=== PATIENT | male | born 1975 | race Caucasian/White ===

== ENCOUNTER 2018-08-10 07:37 | Inpatient (IN) | payer MEDICARE, OTHER ==
[2018-08-10] MEDS ORDERED: ROCURONIUM BROMIDE 10 MG/ML 5ML VIAL ONE (08:48)
[2018-08-10] MEDS ORDERED: ePHEDrine SULFATE 50 MG/1 ML IVP ONE (08:48)
[2018-08-10] MEDS ORDERED: LIDOCAINE HCL 2% PF 100MG/5ML VIAL IJ ONE (08:48)
[2018-08-10] MEDS ORDERED: ENOXAPARIN SODIUM 40 MG/0.4 ML DISP.SYRIN SQ ONE (08:48)
[2018-08-10] MEDS ORDERED: CLINDAMYCIN PHOSPHATE 900 MG/6 ML VIAL ONE (08:48)
[2018-08-10] MEDS ORDERED: BUPIV. HCL 0.25% (2.5MG/ML)/EPI. (1:200,000) PF 30 ML VIAL IJ ONE (08:48)
[2018-08-10] MEDS ORDERED: LEVALBUTEROL NEB 1.25 MG/3 ML VIAL.NEB NEB ONE (08:48)
[2018-08-10] MEDS ORDERED: LACTATED RINGERS 1,000 ML IV.SOLN IV ONE ×2 (08:48)
[2018-08-10] MEDS ORDERED: MIDAZOLAM HCL 2 MG/2 ML VIAL ONE (08:48)
[2018-08-10] MEDS ORDERED: DEXAMETHASONE SODIUM PHOSPHATE 10 MG/ML VIAL ONE (08:48)
[2018-08-10] MEDS ORDERED: SEVOFLURANE 250 ML LIQUID IH ONE (08:48)
[2018-08-10] MEDS ORDERED: SUGAMMADEX SODIUM 500 MG/5 ML VIAL IV ONE (08:48)
[2018-08-10] MEDS ORDERED: LIDOCAINE HCL 1% PF 300MG/30ML VIAL ONE (08:48)
[2018-08-10] MEDS ORDERED: ONDANSETRON HCL/PF 4 MG/ 2ML VIAL ONE (08:48)
[2018-08-10] MEDS ORDERED: FAMOTIDINE 20 MG/2 ML VIAL IV ONE (08:48)
[2018-08-10] MEDS ORDERED: SODIUM CHLORIDE IRRIG SOLUTION 3,000 ML IRRIG.SOLN IR ONE (08:48)
[2018-08-10] MEDS ORDERED: fentaNYL CITRATE/PF 100 MCG/2 ML INJ. ONE ×2 (08:48→12:31)
[2018-08-10] MEDS ORDERED: PROPOFOL 200 MG/20 ML VIAL IV ONE (08:48)
[2018-08-10 13:07] VITALS: BMI 59.3
[2018-08-10] MEDS ORDERED: KETOROLAC TROMETHAMINE 30 MG/1ML VIAL IV PRN (13:08)
--- NOTE | 2018-08-10 13:15 | History and Physical Report ---
History of Present Illnes - History of Present Illness Reason for Visit: S/P LSG History of Present Illness: Patient is a 43-year-old male who has tried multiple diets and exercise programs with no success. He has always struggled with his weight. He has tried many diet plans, diet pills, and walking and has not been able to keep it off. Patient and surgeon decided to proceed with gastric sleeve procedure. Procedure went well- He will be admitted and monitored s/p surgical intervention. Patient has been on a liquid diet prior to surgery so he is a risk of dehydration s/p surgery. He will be admitted for IV hydration to help hydrate patient until he is able to tolerate a sufficient oral intake, will treat pain with IV medication until patient is able to tolerate oral meds, IV antiemetics to help reduce episodes of nausea and/or vomiting. Patient will be monitored closely using telemetry due to cardiac history of HTN and sleep apnea. - Past Medical History Cardiac: HTN, Hyperlipidemia Pulmonary: Sleep Apnea (SETTING 16-20), Other (SOB WITH EXERTION) REVIEW CONSULTANT: Migraine Gastrointestinal: Irritable bowel disease Psych: Depression Musculoskeletal: Chronic low back pain, Osteoarthritis Renal/: Other (HYPOGONADISM) - Past Surgical History Past Surgical History: Other (RT ULNAR NERVE DECOMPRESSION) - Past Family History Mother Family History: CAD, CVA, DM, Hypertension, Other (OBESITY) - Past Social History Smoke: <1 pack per day Occupation: DISABLED Alcohol: Rare Drugs: None Lives: With Family - Health Maintenance Health Maintenance: Cholesterol Influenza Vaccine: No Pneumonia Vaccine: No Resuscitation Status: Resusciation Status Resuscitation Status Full Code - Unable to Obtain History Unable to Obtain: No Review of Systems - Review of Systems Constitutional: negative: Fever, Chills Eyes: negative: conjunctivae inflammation, eyelid inflammation ENT: negative: Ear Pain, Nose Discharge, Throat Pain Respiratory: SOB with Excertion. negative: Cough, Shortness of Breath Cardiovascular: negative: Chest Pain, Light Headedness Gastrointestinal: Nausea, Abdominal Pain. negative: Vomiting Genitourinary: negative: Dysuria Musculoskeletal: Back Pain Skin: negative: Rash, Other (incisions x 5) Neurological: negative: Weakness, Confusion - Medications/Allergies Allergies/Adverse Reactions: Allergies Allergy/AdvReac Type Severity Reaction Status Date / Time Penicillins Allergy Verified 08/10/18 12:59 Home Medications: Home Medications Acetaminophen with Codeine [Tylenol with Codeine #3 Tablet] 1 tab PO Q8 PRN 08/10/18 Baclofen 10 mg PO BID 08/10/18 Buprenorphine [Butrans] 1 each TD WEEK 08/10/18 Duloxetine HCl 60 mg PO DAILY 08/10/18 Garlic 1 tab PO DAILY 08/10/18 Ketoconazole 1 appl 08/10/18 Levocetirizine Dihydrochloride [24Hr Allergy Relief] 5 mg PO DAILY 08/10/18 Linaclotide [Linzess] 145 mcg PO [id number] 08/10/18 Magnesium Oxide [Magnesium] 250 mg PO DAILY 08/10/18 Meloxicam 15 mg PO DAILY 08/10/18 Mometasone Furoate [Nasonex] 17 gm NS BID 08/10/18 Multivitamin [Multiple Vitamins] 1 tab PO DAILY 08/10/18 Omeprazole 40 mg PO DAILY 08/10/18 Potassium Chloride 20 meq PO DAILY 08/10/18 Ranitidine HCl 300 mg PO DAILY 08/10/18 Topiramate 50 mg PO DAILY 08/10/18 Exam - Exam Vital Signs: Vital Signs (72 hours) 08/10/18 08/10/18 12:57 13:02 Temperature 98.4 F 98.4 F Pulse Rate [ 64 64 Right] Respiratory 20 20 Rate Blood Pressure 154/93 154/93 [Right Arm] O2 Sat by Pulse 92 92 Oximetry General: Alert, Oriented to Person, Oriented to Place, Oriented to Time, [place] rative, Moderate distress (due to nausea and discomfort), Morbidly Obese HEENT: PERRLA, Nose Mucous membr. moist/[place] Neck: Normal Range of Motion Carotids: no bruit Lungs: Clear to auscultation, Normal air movement Cardiovascular: Regular rate, Normal S1, Normal S2 Peripheral Edema: none Peripheral Pulses: 2+ Abdomen: Soft, Decreased Bowel Sounds Integumentary: Warm, Dry, Pale, Other (incision dressings x 5 dry and intact) Extremities: No edema, Normal pulses, No tenderness/swelling Neurological: Normal speech, Strength Equal Bilat, Sensation intact. No: Normal gait (usea a cane) Psych/Mental Status: Mental status NL, Intact Judgment Assessment/Plan - Assessment/Plan (1) S/P gastric surgery Status: Acute Plan: Plan to admit for IV hydration, IV pain meds, and IV antiemetics. Lovenox and SCDs to help prevent DVTs, IS and frequent ambulation will be implemented. Start ice chips and advance diet as tolerated. Will check blood sugars frequently and monitor BP (2) Morbid obesity due to excess calories Status: Acute Plan: Patient is s/p gastric sleeve. We will assist patient with implementing gastric sleeve diet protocol starting with ice chips and clear liquids and advancing as tolerated. (3) Hypertension Status: Acute Qualifiers: Hypertension type: essential hypertension Qualified Code(s): I10 - Essential (primary) hypertension Plan: Will monitor blood pressures closely and implement medication as needed (4) Obstructive sleep apnea (adult) (pediatric) Status: Acute Plan: Patient will wear CPAP brought in from home (5) Chronic back pain Status: Acute Plan: Will monitor closely; will have patient ambulating; may use K-pad as needed (6) Depression Status: Acute Plan: Will hold medication until patient is able to tolerate PO VTE Assessment - RISK FACTOR SCORE VTE RISK FACTOR SCORES: AGE 40-60 YEARS, OBESITY, SMOKER, MAJOR SURGERY/ANESTHESIA TIME > 1 HOUR (LOVENOX DAILY, IS, FREQUENT AMBULATION, SCDs while in bed) - RISK VTE HIGH RISK: SCORE OF 3-4 (RISK PROXIMAL DVT 4-8%) PROPHYLAXIS NEEDED (Lovenox daily, SCDs while in bed, IS, frequent ambulation)
[2018-08-10] MEDS ORDERED: 0.9 % SODIUM CHLORIDE 1,000 ML IV ONE (13:21)
[2018-08-10] MEDS: 0.9 % SODIUM CHLORIDE 1,000 ML IV SCH ×2 (13:23→22:26)
[2018-08-10] MEDS ORDERED: NICOTINE 14mg PATCH.TD24 TD PRN (13:28)
[2018-08-10] MEDS: ONDANSETRON HCL/PF 4 MG/ 2ML VIAL IVP PRN ×2 (16:43→22:28)
[2018-08-10] MEDS ORDERED: CLINDAMYCIN HCL 600 MG/50 ML PIGGYBACK IV ONE (17:01)
[2018-08-10] MEDS: CLINDAMYCIN HCL IV SCH (17:19)
[2018-08-10] MEDS: FAMOTIDINE 20 MG/2 ML VIAL IVP SCH (22:27)
[2018-08-10] MEDS: MORPHINE SULFATE 4 MG/ML VIAL IVP PRN (22:28)
[2018-08-11] MEDS ORDERED: CLINDAMYCIN HCL 600 MG/50 ML PIGGYBACK IV ONE (01:37)
[2018-08-11] MEDS: PROMETHAZINE HCL 25 MG in 0.9 % SODIUM CHLORIDE 50 ML IV PRN ×2 (02:08→21:33)
[2018-08-11] MEDS: MORPHINE SULFATE 4 MG/ML VIAL IVP PRN ×2 (02:32→08:44)
[2018-08-11] MEDS: CLINDAMYCIN HCL IV SCH (02:33)
[2018-08-11] MEDS: 0.9 % SODIUM CHLORIDE 1,000 ML IV SCH ×2 (02:35→05:13)
[2018-08-11 06:50] LABS: BASOPHILS % 0.5 % (0.0-1.5); MEAN CORPUSCULAR HEMOGLOBIN 28.3 pg (28.0-34.0); MONOCYTES % 6.7 % (0.0-11.0); NEUTROPHILS # 14.6 # k/uL (1.4-7.7)
--- NOTE | 2018-08-11 06:54 | Inpatient Progress Note ---
Subjective - Required Recertification Statement I anticipate X number of days because-include discharge plan: 1 - Review of Systems Events since last encounter: Patient states that he had a decent night. He had some nausea- minimal vomiting- he was encouraged to sip her drinks and wait in between drinks- he states that his pain is tolerable and pain medications are working. He has been up walking in the [place], wearing SCDs while in bed, and using Incentive Spirometry- incision sites are dry and intact. Patient states that Zofran helps his nausea and pain is running around a 4/10. General: Denies: Chills HEENT: Denies: Dysphasia Pulmonary: Denies: Dyspnea, Cough Cardiovascular: Denies: Chest Pain, Edema Gastrointestinal: Nausea, Vomiting, Abdominal Pain Genitourinary: Denies: Dysuria Musculoskeletal: Back Pain ("from laying in bed") Neurological: Denies: Weakness Objective - Exam Vitals and I&O: Vital Signs Temp 97.8 F 08/11/18 05:37 Pulse 46 L 08/11/18 05:37 Resp 18 08/11/18 05:37 BP 157/64 08/11/18 05:37 Pulse Ox 97 08/11/18 05:37 Intake & Output 08/10/18 08/10/18 08/11/18 11:59 23:59 11:59 Intake Total 450 1080 Output Total 600 0 Balance -150 1080 Weight 209.56 kg Intake: IV 450 900 Left Hand 450 900 Oral 0 180 Output: Urine 600 Stool 0 0 Other: Voiding Method Toilet Toilet # Voids 0 3 # Bowel Movements 0 General: Alert, Oriented to Person, Oriented to Place, Oriented to Time, Cooperative, Mild distress, Morbidly Obese HEENT: PERRLA, Mouth Mucous membr. moist/[place], Nose Mucous membr. moist/[place] Neck: Supple, +2 carotid pulse wo bruit Lungs: Clear to auscultation, Normal air movement Cardiovascular: Regular rate, Normal S1, Normal S2 Abdomen: Normal bowel sounds, Soft Extremities: No edema, Normal pulses, No tenderness/swelling Skin: Normal, [place], Warm, Dry, Other (incisions are dry/intact) Neurological: Normal gait, Normal speech, Strength Equal Bilat, Sensation intact Psych/Mental Status: Mental status NL, Mood NL, Appropriate Affect, Intact Judgment - Results Results: Laboratory Results WBC 18.40 K/ul (4.00-12.00) H 08/11/18 06:10 RBC 4.80 M/ul (3.90-5.20) 08/11/18 06:10 Hgb 13.6 g/dL (12.0-18.0) 08/11/18 06:10 Hct 40.8 % (37.0-53.0) 08/11/18 06:10 MCV 85.0 fl (80.0-100.0) 08/11/18 06:10 MCH 28.3 pg (28.0-34.0) 08/11/18 06:10 MCHC 33.3 g/dL (30.0-36.0) 08/11/18 06:10 RDW 14.1 % (11.3-14.3) 08/11/18 06:10 Plt Count 165 K/mm3 (130-400) 08/11/18 06:10 Neut % (Auto) 79.5 % (39.0-79.0) H 08/11/18 06:10 Lymph % (Auto) 12.3 % (16.0-50.0) L 08/11/18 06:10 [place] % (Auto) 6.7 % (0.0-11.0) 08/11/18 06:10 Eos % (Auto) 1.0 % (0.0-6.8) 08/11/18 06:10 Baso % (Auto) 0.5 % (0.0-1.5) 08/11/18 06:10 Neut # (Auto) 14.6 # k/uL (1.4-7.7) H 08/11/18 06:10 Lymph # (Auto) 2.3 # k/uL (0.6-4.0) 08/11/18 06:10 [place] # (Auto) 1.2 # k/uL (0.0-0.9) H 08/11/18 06:10 Eos # (Auto) 0.2 # k/uL (0.0-0.6) 08/11/18 06:10 Baso # (Auto) 0.1 # k/uL (0.0-0.5) 08/11/18 06:10 Assessment/Plan - Assessment/Plan (1) S/P gastric surgery Status: Acute Assessment: Incision without redness or drainage, positive bowel sounds, minimal discomfort, belching and flatus, no extremity pain or edema, had some nausea with dry heaves Plan: Will continue to have patient ambulate frequently in the [place], wear SCDs while in bed, frequent use of incentive spirometer, continue IVF until patient can take in sufficient oral intake- pt is tolerating po meds (2) Morbid obesity due to excess calories Status: Acute Assessment: Continuing with bariatric diet- patient had some nausea and dry heaves Plan: Will continue with clear liquid diet (3) Hypertension Status: Acute Qualifiers: Hypertension type: essential hypertension Qualified Code(s): I10 - Essential (primary) hypertension Assessment: Blood pressures are stable Plan: Will monitor blood pressures closely-and implement medications as needed (4) Obstructive sleep apnea (adult) (pediatric) Status: Acute Assessment: Stable with CPAP Plan: Continue to use CPAP (5) Chronic back pain Status: Acute Qualifiers: Back pain location: low back pain Assessment: c/o low back pain only because of bed- improves when up and moving Plan: May offer K-pad, frequent ambulation (6) Depression Status: Acute Assessment: sTable Plan: May implement medication once able to tolerate PO
[2018-08-11] MEDS: ONDANSETRON HCL/PF 4 MG/ 2ML VIAL IVP PRN ×2 (06:58→14:03)
[2018-08-11 07:20] LABS: eGFR (Non-African) > 60
[2018-08-11] MEDS ORDERED: SODIUM CHLORIDE IV ONE (08:43)
[2018-08-11] MEDS: TOPIRAMATE 50 MG TABLET PO SCH (08:47)
[2018-08-11] MEDS: ENOXAPARIN SODIUM 40 MG/0.4 ML DISP.SYRIN SQ SCH (08:48)
[2018-08-11] MEDS: FAMOTIDINE 20 MG/2 ML VIAL IVP SCH ×2 (08:49→21:32)
[2018-08-11] MEDS: HYDROcodone-ACETAMIN 7.5-325/15ML SOLN UD CUP PO PRN (14:07)
--- NOTE | 2018-08-12 06:32 | Discharge Summary ---
Discharge Summary - Discharge [facility] Admission Date: 08/10/18 Discharge Date: 08/12/18 History of Present Illness: Patient is a 43-year-old male who has tried multiple diets and exercise programs with no success. He has always struggled with his weight. He has tried many diet plans, diet pills, and walking and has not been able to keep it off. Patient and surgeon decided to proceed with gastric sleeve procedure. Procedure went well- He will be admitted and monitored s/p surgical intervention. Patient has been on a liquid diet prior to surgery so he is a risk of dehydration s/p surgery. He will be admitted for IV hydration to help hydrate patient until he is able to tolerate a sufficient oral intake, will treat pain with IV medication until patient is able to tolerate oral meds, IV antiemetics to help reduce episodes of nausea and/or vomiting. Patient will be monitored closely using telemetry due to cardiac history of HTN and sleep apnea. Condition at Discharge: Stable Home Medications: Ambulatory Orders Medication Instructions Recorded Acetaminophen with Codeine 1 tab PO Q8 PRN 08/10/18 [Tylenol with Codeine #3 Tablet] Baclofen 10 mg PO BID 08/10/18 Buprenorphine [Butrans] 1 each TD WEEK 08/10/18 Duloxetine HCl 60 mg PO DAILY 08/10/18 Garlic 1 tab PO DAILY 08/10/18 Ketoconazole 1 appl 08/10/18 Levocetirizine Dihydrochloride 5 mg PO DAILY 08/10/18 [24Hr Allergy Relief] Linaclotide [Linzess] 145 mcg PO [id number] 08/10/18 Magnesium Oxide [Magnesium] 250 mg PO DAILY 08/10/18 Meloxicam 15 mg PO DAILY 08/10/18 Mometasone Furoate [Nasonex] 17 gm NS BID 08/10/18 Multivitamin [Multiple Vitamins] 1 tab PO DAILY 08/10/18 Omeprazole 40 mg PO DAILY 08/10/18 Potassium Chloride 20 meq PO DAILY 08/10/18 Ranitidine HCl 300 mg PO DAILY 08/10/18 Topiramate 50 mg PO DAILY 08/10/18 Consultations this Visit: None Procedures this Visit: Other (S/P LSG) Allergies/Adverse Reactions: Allergies Allergy/AdvReac Type Severity Reaction Status Date / Time Penicillins Allergy Verified 08/10/18 12:59 Discharge Summary: Patient is a 43-year-old male that underwent the gastric sleeve procedure and has done well. He has been very cooperative with his care by ambulating frequently, using her incentive spirometer, and wearing her SCDs while in bed. He has been compliant with his diet during hospitalization. He is having minimal discomfort at this time and minimal nausea- he has is passing gas and belching. He is aware of discharge instructions and what he can and cannot do post surgical- he is aware of the strict diet he must follow to decrease discomfort and have success after procedure. He has family support and family will be taking him home- medications written by surgeon given to patient. He feels ready to go home. Hospital Course: Patient received IV pain medications, antiemetics, and IVF and was transitioned to oral. She has been up ambulating and using incentive spirometer. - Final Diagnosis (1) S/P gastric surgery Problems: Incision without redness or drainage, positive bowel sounds, minimal discomfort, belching and flatus, no extremity pain or edema- low grade temp this morning (encouraged frequent use of incentive spirometry) Right or Left: Right (2) Morbid obesity due to excess calories Problems: Continue with bariatric sleeve diet- clear liquids today and start full liquids tomorrow Right or Left: Right (3) Hypertension Problems: Stable- may start meds once able to tolerate po Right or Left: Right (4) Obstructive sleep apnea (adult) (pediatric) Problems: Stable- continue to use CPAP Right or Left: Right (5) Chronic back pain Problems: Stable- may use heating pads Right or Left: Right (6) Depression Problems: Stable- may continue on home meds Right or Left: Right
[2018-08-12] MEDS: FAMOTIDINE 20 MG/2 ML VIAL IVP SCH (08:00)
[2018-08-12] MEDS: HYDROcodone-ACETAMIN 7.5-325/15ML SOLN UD CUP PO PRN (08:00)
[2018-08-12] MEDS: TOPIRAMATE 50 MG TABLET PO SCH (08:01)
[2018-08-12] MEDS: ENOXAPARIN SODIUM 40 MG/0.4 ML DISP.SYRIN SQ SCH (08:01)
[2018-08-12 11:15] VITALS: BP 151/66
--- NOTE | 2018-08-15 06:49 | Operative Note ---
PREOPERATIVE DIAGNOSIS: 1. Morbid obesity. 2. Sleep apnea. 3. Gastroesophageal reflux disease. 4. Osteoarthritis. POSTOPERATIVE DIAGNOSIS: 1. Morbid obesity. 2. Sleep apnea. 3. Gastroesophageal reflux disease. 4. Osteoarthritis. PROCEDURES PERFORMED: 1. Laparoscopic vertical sleeve gastrectomy. 2. Upper gastrointestinal endoscopy. SURGEON: Perez Miranda M.D. INDICATIONS FOR PROCEDURE: Mr. Mansfield is a 43-year-old male who presented with features of morbid obesity. He was noted to have a weight of 476 pounds with a BMI of 61 and the above-listed comorbidities. The patient was advised laparoscopic vertical sleeve gastrectomy and possible hiatal hernia repair. The patient showed understanding and agreed to proceed. DESCRIPTION OF PROCEDURE: After explaining to the patient in detail and informed consent was obtained, the patient was identified in the preoperative holding area. The patient was transferred to the operating room and was placed in supine position. Sequential compressive devices were placed for DVT prophylaxis. Preoperative antibiotics were given. After induction of anesthesia, the abdomen was prepped and draped in a sterile fashion. Through a left upper quadrant 1-cm incision, and using Optiview technique, the peritoneal cavity was entered and pneumoperitoneum was created. Thereafter, under direct vision, another 5-mm trocar was placed in the left midabdomen and another 15-mm trocar was placed in the right midabdomen. Through a 1-cm incision in the right subcostal region, another 5-mm trocar was placed. Through a 1-cm incision in the epigastrium, a Suresh retractor was introduced and the left lobe of the liver was retracted. On initial inspection, the patient was noted to have no evidence of hiatal hernia. I took down the gastroepiploic vessels using a LigaSure. This was continued superiorly. The short gastric vessels were taken down. The gastrophrenic ligament was divided and the Angle of His was mobilized. The posterior attachments of the stomach on the pancreas were released. Distally, the gastroepiploic vessels were taken down up to about 4 cm proximal to the pylorus. At this point, a #38 [place]st Bougie was introduced into the stomach and was placed along the lesser curve. The stomach was then divided in a vertical fashion with multiple Endo ELHAM [employer] Black Load Staplers. The first firing was directed outwards towards the greater curvature. Subsequent firings were directed towards the Angle of His to create a loose sleeve around the #38 [place] bougie. The bougie was then removed and an upper GI endoscopy was performed at this point. The scope was introduced into the esophagus and was gradually advanced into the stomach. The GE junction appeared normal. The sleeve size appeared normal. No evidence of any active bleeding was noted. The stomach was insufflated with air and irrigation of fluid along the staple line revealed no evidence of air leak. The stomach was then suctioned out and the scope was removed. Absolute hemostasis was ensured. Thorough saline irrigation was given. The Suresh retractor was removed. Approximately 10 mL of a lidocaine- Marcaine mix was instilled under the left hemidiaphragm. The sleeve gastrectomy specimen was removed. The abdomen was then deflated. The incisions were closed with 4-0 Monocryl. Dermabond was applied. Approximately 10 mL of a lidocaine- Marcaine mix was injected into all the incisions. The patient was awakened from anesthesia and was transferred to the recovery room in stable condition. ESTIMATED BLOOD LOSS: Approximately 25 mL. CONDITION OF THE PATIENT: Stable. FLUIDS GIVEN: Per Anesthesia note. SPECIMEN(S) SENT: Sleeve gastrectomy specimen. COMPLICATIONS: None. ANESTHESIA: General. Perez Miranda M.D. GÓMEZ/malina (Please copy [facility] provider when applicable) Job #[id number] MARIAH
== END 2018-08-12 10:00 | disposition home or self-care (01) | DRG 621 ==
LOC: OPSURG 07:37 → SOUTH 12:45
PROVIDERS: ADMIT Nurse Practitioner Family; ATTEND Nurse Practitioner Family
PROC: 0DB64Z3 Excision of Stomach, Percutaneous Endoscopic Approach, Vertical (ICD-10-PCS; principal; 2018-08-10)
PROC: 0DJ08ZZ Inspection of Upper Intestinal Tract, Via Natural or Artificial Opening Endoscopic (ICD-10-PCS; 2018-08-10)
DX: E66.01 Morbid (severe) obesity due to excess calories (principal); Z68.44 Body mass index [BMI] 60.0-69.9, adult; I10 Essential (primary) hypertension; E78.5 Hyperlipidemia, unspecified; G47.33 Obstructive sleep apnea (adult) (pediatric); G43.909 Migraine, unspecified, not intractable, without status migrainosus; K58.9 Irritable bowel syndrome, unspecified; K76.0 Fatty (change of) liver, not elsewhere classified; F32.9 Major depressive disorder, single episode, unspecified; M17.10 Unilateral primary osteoarthritis, unspecified knee; G89.29 Other chronic pain; M54.5 Low back pain; M25.552 Pain in left hip; M25.551 Pain in right hip; F17.210 Nicotine dependence, cigarettes, uncomplicated; K21.9 Gastro-esophageal reflux disease without esophagitis; Z79.899 Other long term (current) drug therapy; Z79.1 Long term (current) use of non-steroidal anti-inflammatories (NSAID); Z88.0 Allergy status to penicillin; Z82.3 Family history of stroke; Z83.3 Family history of diabetes mellitus; Z82.49 Family history of ischemic heart disease and other diseases of the circulatory system
CPT/HCPCS: 43235; 43775; 80053; 85025; 97116; 97161; 97165; 97530; 97535; A9270; J1650; J1885; J2001; J2250; J2270; J2405; J2550; J2704; J3010; J3490; J7030; J7120; J7614; 99222; 99231; 99238